=== PATIENT | female | born 2000 | race African-American/Black ===

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

== ENCOUNTER 2021-10-30 20:55 | Emergency (ER) | payer MEDICAID | END 2021-10-30 21:15 | disposition left against medical advice (07) | LOC: ER 20:55 | DX: Z53.21 Procedure and treatment not carried out due to patient leaving prior to being seen by health care provider (principal) ==

== ENCOUNTER 2023-03-27 09:47 | Emergency (ER) | payer MEDICAID ==
[~2023-03-27] VITALS: Ht 167.6 cm; Wt 56.0 kg
[2023-03-27 09:51] VITALS: TEMP 98.1; O2SAT 98
[2023-03-27] MEDS ORDERED: KETOROLAC 60MG/2ML VIAL IM ONE ×2 (10:45→13:00)
[2023-03-27 12:52] LABS: BASOPHILS % 0.4 % (0.0-2.0); HEMATOCRIT. 37.5 % (36.0-48.0); LYMPHOCYTES % 32.1 % (20.0-50.0); MEAN CORPUSCULAR HEMOGLOBIN 28.3 pg (28.0-32.0); MEAN CORPUSCULAR HGB CONC 31.9 g/dL (31.0-37.0); MEAN CORPUSCULAR VOLUME 88.5 fL (81.0-99.0); MEAN PLATELET VOLUME 8.1 fl (7.4-10.4); MONOCYTES % 4.5 % (2.0-8.0); PLATELET 196 x1000/uL (130-400); RED BLOOD CELL COUNT 4.24 mill/uL (4.2-5.4); RED CELL DISTRIBUTION WIDTH 13.9 % (11.6-14.6); WHITE BLOOD COUNT 5.8 x1000/uL (4.5-11.0)
[2023-03-27 13:00] LABS: ALANINE AMINOTRANSFERASE 37 IU/L (10-49); ALBUMIN 4.3 g/dL (3.2-4.8); ASPARTATE AMINOTRANSFERASE 34 IU/L (<34); BILIRUBIN TOTAL 0.6 mg/dL (0.1-1.0); CALCIUM 9.2 mg/dL (8.7-10.4); CARBON DIOXIDE 26 mEq/L (21-32); CHLORIDE 106 mEq/L (98-107); CREATININE 0.6 mg/dL (0.6-1.0); GLUCOSE 73 mg/dL (70-105); POTASSIUM 3.6 mEq/L (3.5-5.1); PROTEIN TOTAL 7.9 g/dL (6.0-8.3); SODIUM 139 mEq/L (136-145); UREA NITROGEN BLOOD 6 mg/dL (9-23)
[2023-03-27] MEDS ORDERED: ONDANSETRON 4MG ODT PO ONE (13:00)
[2023-03-27 13:06] VITALS: BP 127/83; PULSE 99; RESP 18
[2023-03-27 13:16] LABS: CLARITY URINE CLEAR (CLEAR); COLOR URINE ORANGE (YELLOW); GLUCOSE URINE NEGATIVE (NEGATIVE); KETONES URINE NEGATIVE (NEGATIVE); LEUKOCYTE ESTERASE URINE NEGATIVE (NEGATIVE); NITRITE URINE NEGATIVE (NEGATIVE); OCCULT BLOOD URINE 3+ (NEGATIVE); PROTEIN URINE NEGATIVE (NEGATIVE); SPECIFIC GRAVITY URINE 1.008 (1.005-1.030); UROBILINOGEN URINE 0.2 E.U./dL (0.2-1.0)
[2023-03-27 13:47] LABS: BACTERIA URINE FEW; RBC URINE TNTC /hpf (0-2); SQUAMOUS EPITHELIAL CELL URINE 2+ /lpf (RARE/1+); WBC URINE 0-2 /hpf (0-2); YEAST URINE NONE SEEN
[2023-03-27] MEDS ORDERED: ONDA4TAB11 PO (14:06)
[2023-03-27] MEDS ORDERED: IBUP-2028 MT (14:06)
[2023-03-27] MEDS ORDERED: DOXY100C5 MT (14:10)
[2023-03-27] MEDS ORDERED: CEFTRIAXONE SODIUM 500 MG/VIAL IM ONE (14:15)
[2023-03-30 04:12] LABS: CHLAMYDIA TRACHOMATIS NAA Negative (Negative); NEISSERIA GONORRHOEAE NAA Negative (Negative)
== END 2023-03-27 14:41 | disposition home or self-care (01) ==
LOC: ER 09:58
DX: R10.2 Pelvic and perineal pain (principal); N83.209 Unspecified ovarian cyst, unspecified side; F12.90 Cannabis use, unspecified, uncomplicated
CPT/HCPCS: 99284; 76830; 76856; 87491; 87591; 80053; 81003; 81025; 83690; 85025; 36415; 96372; Q0162; J0696; J1885

== ENCOUNTER 2023-07-06 23:45 | Emergency (ER) | payer MEDICAID ==
[~2023-07-06] VITALS: Ht 170.2 cm; Wt 76.0 kg
[~2023-07-06 23:45] MED LIST: DOXY100C5 MT; IBUP-2028 MT; ONDA4TAB11 PO
[2023-07-06 23:52] VITALS: TEMP 97.8; O2SAT 98
[2023-07-07 00:17] LABS: BASOPHILS % 0.4 % (0.0-2.0); EOSINOPHILS % 1.9 % (0.0-5.0); HEMATOCRIT. 35.6 % (36.0-48.0); HEMOGLOBIN. 11.8 g/dL (12.0-16.0); LYMPHOCYTES % 37.9 % (20.0-50.0); MEAN CORPUSCULAR HEMOGLOBIN 28.6 pg (28.0-32.0); MEAN CORPUSCULAR HGB CONC 33.1 g/dL (31.0-37.0); MEAN CORPUSCULAR VOLUME 86.6 fL (81.0-99.0); MEAN PLATELET VOLUME 7.5 fl (7.4-10.4); MONOCYTES % 4.6 % (2.0-8.0); NEUTROPHILS % 55.2 % (40.0-76.0); PLATELET 226 x1000/uL (130-400); RED BLOOD CELL COUNT 4.11 mill/uL (4.2-5.4); RED CELL DISTRIBUTION WIDTH 14.6 % (11.6-14.6); WHITE BLOOD COUNT 6.6 x1000/uL (4.5-11.0)
[2023-07-07 00:33] LABS: ALANINE AMINOTRANSFERASE 30 IU/L (10-49); ALBUMIN 4.5 g/dL (3.2-4.8); ASPARTATE AMINOTRANSFERASE 34 IU/L (<34); BILIRUBIN TOTAL 0.4 mg/dL (0.1-1.0); CALCIUM 8.6 mg/dL (8.7-10.4); CARBON DIOXIDE 26 mEq/L (21-32); CHLORIDE 106 mEq/L (98-107); CREATININE 0.6 mg/dL (0.6-1.0); GLUCOSE 112 mg/dL (70-105); SODIUM 137 mEq/L (136-145); UREA NITROGEN BLOOD 7 mg/dL (9-23)
[2023-07-07 02:52] VITALS: BP 125/77; PULSE 75; RESP 12
[2023-07-07] MEDS: KETOROLAC 60MG/2ML VIAL IM STA (02:52)
[2023-07-07 03:37] LABS: HCG SCREEN NEGATIVE
[2023-07-07] MEDS ORDERED: NAP5EC MT (06:11)
[2023-07-07] MEDS ORDERED: ONDA4TAB11 PO (06:23)
== END 2023-07-07 06:37 | disposition home or self-care (01) ==
LOC: ER 23:45
DX: N83.202 Unspecified ovarian cyst, left side (principal); F12.10 Cannabis abuse, uncomplicated; Z79.899 Other long term (current) drug therapy
CPT/HCPCS: 36415; 76830; 76856; 80053; 84703; 85025; 96372; 99285